=== PATIENT | female | born 1985 | race Caucasian/White ===

== ENCOUNTER 2017-05-23 21:06 | Emergency (ER) | payer OTHER ==
[2017-05-23 21:54] VITALS: BP 149/93; PULSE 117; RESP 16; O2SAT 97
[2017-05-23] MEDS ORDERED: guaiFENesin 200 mg/10 ml Syrup UD PO ONE (22:51)
[2017-05-23] MEDS ORDERED: guaiFENesin 100 mg/5 ml Syrup UD ONE ×2 (22:55→22:57)
--- NOTE | 2017-05-23 23:13 | ED PDOC ---
HPI: Fever Additional Comments: Patient reports 2 days of fever with cough, bodyaches, malaise, diarrhea today. Otherwise: (-) SOB, (-) chest pain, (-) N/V, (-) abdominal pain, (-) flank pain, (-) urinary symptoms, (-) recent travel, (+) sick contacts. Past Medical History Vital Signs: Last Vital Signs Temp 101.7 F H 05/23/17 21:51 Pulse 117 H 05/23/17 21:51 Resp 16 05/23/17 21:51 BP 149/93 H 05/23/17 21:51 Pulse Ox 97 05/23/17 23:16 - Medical History PMH: No Chronic Diseases - Family History Family History: States: No Known Family Hx - Home Medications Home Medications: Ambulatory Orders Medication Instructions Recorded Guaifenesin 400 mg PO QID #20 tablet 05/23/17 Ibuprofen [Motrin Tab] 600 mg PO QID PRN #20 tab 05/23/17 Oseltamivir Phosphate [Tamiflu] 75 mg PO BID #10 capsule 05/23/17 - Allergies Allergies/Adverse Reactions: Allergies Allergy/AdvReac Type Severity Reaction Status Date / Time No Known Allergies Allergy Verified 05/23/17 21:51 Review of Systems Constitutional: Positive for: Fever, Chills, Malaise ENT: Negative for: Ear Pain, Nose Discharge, Throat Pain Cardiovascular: Negative for: Chest Pain, Palpitations Respiratory: Positive for: Cough. Negative for: Shortness of Breath Gastrointestinal: Positive for: Diarrhea. Negative for: Nausea, Vomiting, Abdominal Pain Genitourinary Female: Negative for: Dysuria, Frequency Musculoskeletal: Negative for: Neck Pain, Back Pain Skin: Negative for: Rash, Lesions Physical Exam - Physical Exam Comments: GENERAL APPEARANCE: Patient is awake, alert, oriented x 3, in no acute distress. SKIN: Warm, dry; (-) cyanosis, (-) rash. EYES: (-) conjunctival pallor, (-) scleral icterus, (-) conjunctival hemorrhage. ENMT: Mucous membranes moist. TMs: (-) erythema. Airway patent: (-) stridor. Pharynx: (-) erythema, (-) exudate. NECK: (-) tenderness, (-) stiffness, (-) meningismus, (-) lymphadenopathy. CHEST AND RESPIRATORY: (-) accessory muscle use. Lungs: (-) rales, (-) rhonchi, (-) wheezes, (-) rub; breath sounds equal bilaterally. HEART AND CARDIOVASCULAR: (-) irregularity; (-) murmur, (-) gallop, (-) rub. ABDOMEN AND GI: Soft; (-) tenderness, (-) guarding; (-) organomegaly; (-) mass ; (-) CVA tenderness. EXTREMITIES: (-) deformity; (-) cellulitis, (-) lymphangitis; (-) subungual hemorrhage; (-) edema. NEURO AND PSYCH: Mental status as above; (-) focal findings. - ECG O2 Sat by Pulse Oximetry: 97 Medical Decision Making Medical Decision Making: Plan : - Rapid flu - Motrin 600 mg PO - Guiafenesin 400 mg PO Rapid flu : (+) for flu A Diagnostic results d/w the patient. Repeat T 100.4. Diagnosis of influenza d/w the patient. Advised bedrest, drink plenty of fluids, motrin for fever and pain. Advised to follow up with primary care physician in 1-2 days without fail. Advised to take medication as prescribed. Return to the emergency room at any time for any new or worsening symptoms. Patient states she fully agrees with and understands discharge instructions. States that she agrees with the plan and disposition. Verbalized and repeated discharge instructions and plan. I have given the patient opportunity to ask any additional questions. Disposition - Clinical Impression Clinical Impression: Influenza - Patient ED Disposition Is Patient to be Admitted: No Counseled Patient/Family Regarding: Studies Performed, Diagnosis, Need For Followup, Rx Given - Disposition Disposition: Routine/Home Disposition Time: 00:00 Condition: STABLE Additional Instructions: Thank you for letting us take care of you today. You were treated for fever, viral illness. The emergency medical care you received today was directed at your acute symptoms. If you were prescribed any medication, please fill it and take as directed. It may take several days for your symptoms to resolve. Return to the Emergency Department if your symptoms worsen, do not improve, or if you have any other problems. Please contact your doctor in 2 days for re-evaluation and follow up / or call one of the physicians/clinics you have been referred to that are listed on the Patient Visit Information form that is included in your discharge packet. Bring any paperwork you were given at discharge with you along with any medications you are taking to your follow up visit. Our treatment cannot replace ongoing medical care by a primary care provider (PCP) outside of the emergency department. Thank you for allowing the [facility] team to be part of your care today. 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
[2017-05-23 23:35] VITALS: TEMP 100.4
== END 2017-05-23 23:43 | disposition home or self-care (01) ==
LOC: H.ER 21:06
DX: J11.1 Influenza due to unidentified influenza virus with other respiratory manifestations (principal)